=== PATIENT | female | born 1960 | race Caucasian/White ===

== ENCOUNTER 2023-12-26 07:57 | Day surgery (SDC) | payer OTHER ==
[~2023-12-26] VITALS: Ht 157.5 cm; Wt 89.8 kg
[2023-12-26] MEDS ORDERED: fentaNYL citrate 0.05 MG/ML VIAL ONE (10:43)
[2023-12-26] MEDS: fentaNYL citrate 0.05 MG/ML VIAL IVP ONE (10:46)
[2023-12-26] MEDS: LIDOCAINE 2% 100 MG/5 ML UJET TP ONE (10:49)
== END 2023-12-26 12:45 | disposition home or self-care (01) ==
LOC: MDS 07:57 → MMU 08:02 → MDS 12:45
PROVIDERS: ATTEND Internal Medicine Gastroenterology
DX: K59.00 Constipation, unspecified (principal); K57.30 Diverticulosis of large intestine without perforation or abscess without bleeding; I10 Essential (primary) hypertension; E11.9 Type 2 diabetes mellitus without complications; E78.5 Hyperlipidemia, unspecified; Z98.51 Tubal ligation status; Z79.899 Other long term (current) drug therapy; Z98.890 Other specified postprocedural states
CPT/HCPCS: 45378; 82948; J3010